=== PATIENT | male | born 1965 | race Caucasian/White ===

== ENCOUNTER 2018-02-19 00:13 | Emergency (ER) | payer BC ==
[2018-02-19] MEDS ORDERED: diphenhydrAMINE 50 MG/ML SDV IVPUSH ONE (01:04)
[2018-02-19] MEDS ORDERED: Sodium Chloride 0.9% 10 ML Syringe FLUSH PRN (01:04)
[2018-02-19] MEDS ORDERED: Metoclopramide 10 MG/2 ML SDV IVPUSH ONE (01:04)
[2018-02-19] MEDS ORDERED: Sodium Chloride 0.9% 1,000 ML IV SCH (01:15)
[2018-02-19] MEDS ORDERED: Ketorolac 30 MG/ML SDV IVPUSH SCH (01:15)
[2018-02-19] MEDS ORDERED: Dexamethasone 4 MG/ML SDV IVPUSH ONE (01:50)
[2018-02-19] MEDS ORDERED: HYDROmorphone 0.5 MG/0.5 ML SYRINGE IVPUSH ONE (01:51)
--- NOTE | 2018-02-19 03:10 | EDM.PDOC ---
ED HPI GENERAL MEDICAL PROBLEM - General Chief Complaint: Headache Stated Complaint: HEADACHE/NAUSEA Time Seen by Provider: 02/19/18 00:53 Source of Information: Reports: Patient, RN Notes Reviewed - History of Present Illness INITIAL COMMENTS - FREE TEXT/NARRATIVE: 52-year-old male comes in with headache. He had onset of this about 4 hours ago. Headache is primarily frontal with nausea, vomiting and throbbing. She does have history of occasional headaches but has not had more severe headache like this for about 2 or 3 years. He has not been recently ill. No fever or chills. He does have light sensitivity but no visual difficulty. No upper or lower extremity weakness or clumsiness. No speech difficulty. Headache Pain Score (Numeric/FACES): 9 - Related Data Allergies Allergy/AdvReac Type Severity Reaction Status Date / Time No Known Allergies Allergy Verified 02/19/18 00:21 Home Meds: Home Meds Aspirin [Ecotrin] 81 mg PO DAILY 02/19/18 [History] Lisinopril [Prinivil] 2 mg PO DAILY 02/19/18 [History] Past Medical History HEENT History: Reports: Sinusitis Cardiovascular History: Reports: Hypertension Gastrointestinal History: Reports: Gastritis Neurological History: Reports: Concussion - Past Surgical History HEENT Surgical History: Reports: Tonsillectomy GI Surgical History: Reports: Appendectomy, Colonoscopy, EGD, Esophageal Dilatation, Polypectomy Social & Family History - Tobacco Use Smoking Status *Q: Never Smoker - Recreational Drug Use Recreational Drug Use: No ED ROS GENERAL - Review of Systems Review Of Systems: See Below Constitutional: Denies: Fever, Chills HEENT: Denies: Sinus Problem, Throat Pain Respiratory: Denies: Shortness of Breath, Wheezing, Cough Cardiovascular: Denies: Chest Pain GI/Abdominal: Reports: Nausea, Vomiting. Denies: Abdominal Pain Musculoskeletal: Denies: Neck Pain, Arm Pain, Back Pain Skin: Reports: No Symptoms Neurological: Denies: Trouble Speaking, Difficulty Walking, Weakness - Physical Exam Exam: See Below General Appearance: Alert, Moderate Distress Eye Exam: Bilateral Eye: PERRL Throat/Mouth: Normal Inspection, Normal Oropharynx Head Exam: Atraumatic. No: Facial Swelling Neck: Supple, Full Range of Motion Respiratory/Chest: No Respiratory Distress, Lungs Clear, Normal Breath Sounds Cardiovascular: Tachycardia Neuro Exam (Abbreviated): Alert, Oriented, No Motor/Sensory Deficits, Other ( Finger to nose testing normal) Back Exam: Normal Inspection Extremities: Normal Inspection, Normal Range of Motion Skin Exam: Warm, Dry, Normal Color, No Rash Course - Vital Signs Last Recorded V/S: Last Vital Signs Temp 97.1 F 02/19/18 00:22 Pulse 101 H 02/19/18 00:22 Resp 16 02/19/18 00:22 BP 145/105 H 02/19/18 00:22 Pulse Ox 98 02/19/18 00:22 - Orders/Labs/Meds Orders: Active Orders 24 hr Category Date Time Status Peripheral IV Care [RC] . DIRECTED Care 02/19/18 01:05 Active Ketorolac [Toradol] Med 02/19/18 01:15 Active 30 mg IVPUSH ONETIME Sodium Chloride 0.9% [Normal Saline] 1,000 ml Med 02/19/18 01:15 Active IV ONETIME Sodium Chloride 0.9% [Saline Flush] Med 02/19/18 01:04 Active 10 ml FLUSH ASDIRECTED PRN Peripheral IV Insertion Adult [OM.PC] Stat Oth 02/19/18 01:04 Ordered Medication Orders Sodium Chloride (Normal Saline) 1,000 mls @ 999 mls/hr IV ONETIME MARCELA Last Admin: 02/19/18 01:14 Dose: 999 mls/hr Ketorolac Tromethamine (Toradol) 30 mg IVPUSH ONETIME MARCELA Last Admin: 02/19/18 01:15 Dose: 30 mg Sodium Chloride (Saline Flush) 10 ml FLUSH ASDIRECTED PRN PRN Reason: Keep Vein Open Last Admin: 02/19/18 01:15 Dose: 10 ml Meds: Medications Generic Name Dose Route Start Last Admin Trade Name Freq PRN Reason Stop Dose Admin Sodium Chloride 1,000 mls @ 999 mls/hr 02/19/18 01:15 02/19/18 01:14 Normal Saline IV 999 mls/hr ONETIME MARCELA Administration Ketorolac Tromethamine 30 mg 02/19/18 01:15 02/19/18 01:15 Toradol IVPUSH 30 mg ONETIME MARCELA Administration Sodium Chloride 10 ml 02/19/18 01:04 02/19/18 01:15 Saline Flush FLUSH 10 ml ASDIRECTED PRN Administration Keep Vein Open Discontinued Medications Generic Name Dose Route Start Last Admin Trade Name Freq PRN Reason Stop Dose Admin Dexamethasone 4 mg 02/19/18 01:50 02/19/18 02:01 Dexamethasone IVPUSH 02/19/18 01:51 4 mg ONETIME ONE Administration Diphenhydramine HCl 25 mg 02/19/18 01:04 02/19/18 01:15 Benadryl IVPUSH 02/19/18 01:05 25 mg ONETIME ONE Administration Hydromorphone HCl 1 mg 02/19/18 01:51 02/19/18 02:00 Dilaudid IVPUSH 02/19/18 01:52 1 mg ONETIME ONE Administration Metoclopramide HCl 10 mg 02/19/18 01:04 02/19/18 01:15 Reglan IVPUSH 02/19/18 01:05 10 mg ONETIME ONE Administration - Re-Assessments/Exams Free Text/Narrative Re-Assessment/Exam: 02/19/18 03:36 Patient was initially treated with Reglan 10 mg IV, Toradol 30 mg IV and Benadryl 25 mg IV. That he did get somewhat sleepy but still rated his headache and 8. He also over time was given a full 1 L of normal saline. Because of continued severity of headache he was further given dexamethasone 4 mg IV and Dilaudid 1 mg IV. Discomfort greatly improved over time. Discharge instructions as documented. Departure - Departure Time of Disposition: 03:10 Disposition: Home, Self-Care 01 Condition: Fair Clinical Impression: Migraine - Discharge Information Instructions: Migraine Headache, [id number] Referrals: Junior Prasad MD [Primary Care Provider] - Forms: ED Department Discharge, ED Return to Work/School Form Additional Instructions: You have been given multiple sedating medications while here in the ED. To be safe no driving until mid to late afternoon and then only if all symptoms of drowsiness or gone. Work note has been provided to return to work tomorrow morning, no restrictions. You may alternate Tylenol and ibuprofen if needed for further headache. He turned to ED as needed if symptoms worsening in any way. - My Orders Last 24 Hours: My Active Orders 02/19/18 01:04 Sodium Chloride 0.9% [Saline Flush] 10 ml FLUSH ASDIRECTED PRN Peripheral IV Insertion Adult [OM.PC] Stat 02/19/18 01:05 Peripheral IV Care [RC] . DIRECTED 02/19/18 01:15 Ketorolac [Toradol] 30 mg IVPUSH ONETIME Sodium Chloride 0.9% [Normal Saline] 1,000 ml IV ONETIME - Assessment/Plan Last 24 Hours: My Active Orders 02/19/18 01:04 Sodium Chloride 0.9% [Saline Flush] 10 ml FLUSH ASDIRECTED PRN Peripheral IV Insertion Adult [OM.PC] Stat 02/19/18 01:05 Peripheral IV Care [RC] . DIRECTED 02/19/18 01:15 Ketorolac [Toradol] 30 mg IVPUSH ONETIME Sodium Chloride 0.9% [Normal Saline] 1,000 ml IV ONETIME
== END 2018-02-19 03:18 | disposition home or self-care (01) ==
LOC: JD.ED 00:13
DX: G43.909 Migraine, unspecified, not intractable, without status migrainosus (principal); I10 Essential (primary) hypertension; Z79.82 Long term (current) use of aspirin; Z79.899 Other long term (current) drug therapy
CPT/HCPCS: 96361; 96374; 96375; 99283; J1100; J1170; J1200; J1885; J2765; J7040; J7050; 99284